=== PATIENT | female | born 2005 | race Caucasian/White ===

== ENCOUNTER → 2025-04-28 10:58 | Outpatient (REF) | payer BC, SELFPAY ==
[2025-04-28 12:43] LABS: HDL Cholesterol 68 mg/dl; LDL Cholesterol, Calculated 118 mg/dl; Very Low Density Lipoprotein 49 mg/dl (0-30)
[2025-04-28 13:07] LABS: TSH 3.34 uIU/ml (0.47-4.68)
[2025-04-29 16:06] LABS: Lipoprotein a (Lp a) 67 mg/dL (<=29)
== END ==
LOC: REG 10:58
PROVIDERS: ATTENDING PHYSICIAN Student in an Organized Health Care Education/Training Program; FAMILY PHYSICIAN Student in an Organized Health Care Education/Training Program
DX: E78.2 Mixed hyperlipidemia (principal); E03.8 Other specified hypothyroidism; E78.00 Pure hypercholesterolemia, unspecified
CPT/HCPCS: 36415; 80061; 82172; 83695; 84439; 84443

== ENCOUNTER 2025-07-16 04:54 | Emergency (ER) | payer BC, SELFPAY ==
[2025-07-16 04:58] VITALS: BP 126/79
--- NOTE | 2025-07-16 05:19 | ED.GENMED ---
History of Present Illness
General
Chief Complaint: Abdominal Pain
Time Seen by Provider: 07/16/25 05:17
History of Present Illness
History of Present Illness:
FOCUSED PAST MEDICAL HISTORY
- Hyperlipidemia, asthma
REVIEW OF OLD RECORDS
- I reviewed records, the patient had finger x-ray in 2020
Note:
CHIEF COMPLAINT(S)
Left-sided flank pain for approximately 24 hours.
HISTORY OF PRESENT ILLNESS
The patient is a 20-year-old female who presents with complaints of left-sided flank pain that began suddenly yesterday morning, lasting for nearly 24 hours at the time of evaluation. The patient describes the pain as sharp and 'crazy.' The pain is
exacerbated by twisting motions of the torso. She reports associated back pain but denies any injury, hematuria, or vomiting. The patient�s diet has been minimal; she ate only a sandwich for dinner yesterday and did not eat lunch. She has not
noticed any blood in her urine.
PAST MEDICAL AND SURGICAL HISTORY
The patient uses inhaled albuterol regularly for asthma and is on pravastatin as a precautionary measure for cholesterol management. She also has a history of being prescribed digoxin, though she has not taken it in a while.
PHYSICAL EXAM
General: Alert, no acute distress pain clearly seems to worsen when she flexes forward at the torso or rotate to the torso
Skin: Warm, dry.
Head: Normocephalic, atraumatic.
Neck: Supple, trachea midline.
Eye, Ears, Nose, Mouth and Throat: Oral mucosa moist.
Cardiovascular: Normal peripheral perfusion, No edema.
Respiratory: Respirations are non-labored.
Gastrointestinal: Abdomen nondistended. Mild tenderness left side of the abdomen between left upper and left lower quadrants
Back: Pain upon palpation of the left flank area.
Musculoskeletal: Pain upon twisting movements of the torso.
Neurological: Alert and oriented to person, place, time, and situation, No focal neurological deficit observed.
Psychiatric: Cooperative, appropriate mood & affect.
PLAN
1. Obtain a CT scan to further evaluate the left-sided pain.
2. Administer Toradol for pain management, as it is a non-narcotic anti-inflammatory medication.
3. Blood work will be performed to check for any underlying issues.
4. Consider musculoskeletal origin for pain due to possible twisting or stretching of muscles.
DIFFERENTIAL DIAGNOSIS
The Differential Diagnosis includes, in no particular order and is not limited to:
1. Nephrolithiasis (Kidney Stones)
2. Musculoskeletal strain or sprain
3. Pyelonephritis
4. Urinary tract infection
5. Intercostal muscle strain
6. Rib fracture
7. Herpes Zoster (Shingles)
8. Abdominal aortic aneurysm
9. Ovarian torsion
10. Appendicitis
RADIOLOGY
- CT abdomen pelvis obtained
LABS
- Offered and recommended blood work however the patient refused
UPDATE
-SUMMARY OF ENCOUNTER
The patient, a 20-year-old female, presented with sudden onset left-sided flank pain. A CT scan was performed, which did not indicate kidney stones or appendicitis. However, the scan revealed signs consistent with epiploic appendagitis. This is an
inflammation of fat appendages in the colon. This condition is self-limiting and requires no surgical intervention. Pain management with ibuprofen was recommended. The patient was counseled that this condition generally resolves over time and was
advised to manage pain with mhky-edt-oytxduv Motrin (ibuprofen) and to avoid strenuous activity. It was highlighted that this is a benign condition and major complications are rare.
PLAN
The plan is for symptom relief with ubir-ppw-fgcjscy ibuprofen, taking up to four 200 mg tablets every eight hours as needed for pain. Patient advised against extensive physical exertion but no strict bed rest is necessary.
INDEPENDENT REVIEW OF LABS AND INTERPRETATION OF TESTS
My independent interpretation of the CT scan noted epiploic appendagitis with no indication of kidney stones, appendicitis, nor bowel obstruction.
PATIENT EDUCATION AND COUNSELING
The patient was educated on the nature of epiploic appendagitis, explaining it as a self-limiting condition that causes pain due to inflammation of fat appendages. The condition usually improves over time without any surgical treatment. The patient
was informed about potential for ongoing discomfort and the importance of managing pain with ibuprofen. Reassured that serious complications are unlikely but advised on warning signs for potential complications.
FOLLOW-UP INSTRUCTIONS
Patient to follow up in primary care if pain persists beyond expected resolution time or if symptoms worsen.
MEDICATION RECONCILIATION
Ibuprofen (Motrin) 200 mg over the counter, recommended to take 4 tablets every 8 hours as needed for pain.
MEDICAL DECISION MAKING
- Complexity of Data Reviewed:
Chronic conditions affecting care include asthma and dyslipidemia.
Differential diagnoses considered were nephrolithiasis, musculoskeletal strain, urinary tract infection among others.
- Data:
Category 1:
CT scan reviewed indicating epiploic appendagitis.
Category 2:
None explicitly mentioned.
Category 3:
No specific discussion with other healthcare providers mentioned.
- Risk:
The consideration of admission or observation was judged unnecessary due to the self-limiting nature of epiploic appendagitis and stable vital signs, thus outpatient management with follow-up was deemed appropriate.
DIAGNOSIS
Epiploic Appendagitis (K63.89)
Past History
Past History
ED Past Medical History: Asthma
ED Past Surgical History: None
Social History
Tobacco: Non-smoker
Alcohol: None
Drug: None
Personal: Single
Living: with family
Phy Exam
Physical Exam
Physical Exam:
See HPI
Course
Orders/Labs/Results
Orders:
Orders
07/16/25 05:16
CT Abd/pel Without Iv Or Oral Urgent
Comment:
Reason For Exam: L side back to back
07/16/25 05:17
Ketorolac [Toradol] 15 mg IV NOW STA
07/16/25 05:28
Test Result ONCE
07/16/25 05:29
Urinalysis Reflex To Culture Urgent
Date Specimen was Collected: 07/16/25
Time Specimen was Collected: 05:28
Urine Microscopic Reflex Cult Urgent
Urine Culture Urgent
CHAZ Source: U
Specimen Description:
Date Specimen was Collected: 07/16/25
Time Specimen was Collected: 05:28
07/16/25 05:30
Ibuprofen [Motrin] 800 mg PO NOW STA
07/16/25 05:32
HCG, Urine Qualitative Screen Urgent
Date Specimen was Collected: 07/16/25
Time Specimen was Collected: 05:30
Abnormal Lab Results
07/16/25
05:29
Ur Occult Blood Reflex 2+ A
(Negative)
Leukocyte Esterase Rfl 3+ A
(Negative)
Urine WBC (Reflex) 40-50 A /HPF
(0-5)
Urine Bacteria (Reflex) Few A
(Negative)
Urine Albumin (Reflex) 2+ A
(Neg - Trace)
07/16/25 05:16
07/16/25 05:17
Vital Signs
Initial and Last Documented VS:
Initial Vital Signs
Temp Pulse Resp BP Pulse Ox
36.9 C 90 16 126/79 97
07/16/25 04:58 07/16/25 04:58 07/16/25 04:58 07/16/25 04:58 07/16/25 04:58
Last Documented Vital Signs
Temp Pulse Resp BP Pulse Ox
36.7 C 66 16 107/59 99
07/16/25 06:49 07/16/25 06:49 07/16/25 06:49 07/16/25 06:49 07/16/25 06:49
*Pulse Oximetry
SaO2: 97
Oxygen Mode of Delivery: Room air
Patient hypoxic: no
*Critical Care Note
Total Time (30-74mins, 75-104mins- exclusive of procedures): Not Applicable
ED Attending Note
-
Portions of this chart may have been created with voice recognition software.� Occasional wrong word or��sound alike� substitutions may have occurred due to the inherent limitations of voice recognition software.
Discharge Plan
Departure
Patient Disposition: Home (Routine Discharge)
Date of Disposition: 07/16/25
Time of Disposition: 06:39
Patient with high blood pressure during this ER visit?: Yes
Discharge Problem:
Epiploic appendagitis
Instructions: Abdominal Pain, BLOOD PRESSURE
Prescriptions:
No Action
albuterol sulfate [Proventil] 2.5 MG/3 ML solution for nebulization
0.83 mg inhalation Q4HPRN PRN (Reason: SOB)
methylphenidate HCl 10 MG tablet
10 mg PO DAILY
methylphenidate HCl 5 MG tablet
5 mg PO DAILY
fluticasone propionate [Flovent HFA] 1 PUFF HFA aerosol inhaler
2 puff inhalation R BID
dexmethylphenidate [Focalin XR] 10 MG capsule,ER biphasic 50-50
10 mg PO DAILY
Referrals:
Marzena Verduzco MD [Family Provider, Internal Medicine]
Activity Restrictions/Additional Instructions:
Your CAT scan shows signs of epiploic appendagitis on the left side of your colon. There is no sign of bowel obstruction. A normal appendix was visualized. I recommend 3-4 gglb-xff-[id number] ibuprofen (Motrin) every 8 hours with food for a few
days. Return here if worse or other concerns.
Interventions
Interventions:
*Risk Screen - Suicide Last Done: 07/16/25 04:58
*General Assessment Last Done: 07/16/25 05:31
*Neglect/Abuse Screening Last Done: 07/16/25 05:31
*ED- Fall Risk Assessment Last Done: 07/16/25 05:31
*ED COVID-19 Vaccine History Last Done: 07/16/25 05:31
*ED Influenza Vaccine History Last Done: 07/16/25 05:31
*Nursing Disposition Last Done: 07/16/25 06:49
QM-Dpfbiq-Futccgugie Assessment Last Done: 07/16/25 05:27
Discharge Date and Time
Discharge Date/Time: 07/16/25 06:50
Print Language: DOMINICAN
[2025-07-16] MEDS: MOTRIN 800 MG PO (05:35)
[2025-07-16 06:09] LABS: HCG, Urine Qualitative Screen Negative
[2025-07-16 06:15] LABS: Urine Character Cloudy (Clear)
[2025-07-16 06:49] VITALS: BP 107/59
[2025-07-16 06:59] LABS: Urine Squamous Cell >30 /LPF (Few)
[2025-07-16 07:00] LABS: Urine Red Blood Cell 0-2 /HPF (0-2); Urine White Cell 40-50 /HPF (0-5)
== END 2025-07-16 06:50 | disposition home or self-care (01) ==
LOC: EMR 04:54
PROVIDERS: EMERGENCY PHYSICIAN Emergency Medicine; FAMILY PHYSICIAN Student in an Organized Health Care Education/Training Program
DX: K63.89 Other specified diseases of intestine (principal); E78.5 Hyperlipidemia, unspecified; J45.909 Unspecified asthma, uncomplicated
CPT/HCPCS: 99284; 74176; 81003; 81015; 81025; 87086